=== PATIENT | male | born 1990 | race African-American/Black ===

== ENCOUNTER 2018-02-16 18:49 | Emergency (ER) | payer SELFPAY ==
[~2018-02-16] VITALS: Ht 177.8 cm; Wt 68.2 kg
[2018-02-16 19:49] VITALS: BP 124/76
[2018-02-16] MEDS ORDERED: IBUPROFEN 800 MG TABLET PO ONE (20:00)
[2018-02-16] MEDS ORDERED: DOXYCYCLINE HYCLATE 100 MG CAPSULE PO ONE (20:00)
== END 2018-02-16 20:38 | disposition home or self-care (01) ==
LOC: EMS 18:50
DX: L04.2 Acute lymphadenitis of upper limb (principal); F15.10 Other stimulant abuse, uncomplicated
CPT/HCPCS: 99283